=== PATIENT | male | born 1990 | race Caucasian/White ===

== ENCOUNTER 2017-11-08 17:23 | Emergency (ER) | payer MEDICAID ==
[~2017-11-08] VITALS: Ht 167.6 cm; Wt 81.6 kg
[2017-11-08 17:36] VITALS: BP 113/63
[2017-11-08] MEDS ORDERED: KETOROLAC 60 MG/2 ML VIAL IM ONE (18:10)
[2017-11-08] MEDS ORDERED: HYDROcodone/APAP 5/325 MG 1 TAB TAB PO ONE (18:10)
[2017-11-08 19:08] VITALS: BP 118/78
== END 2017-11-08 19:08 | disposition home or self-care (01) ==
LOC: MED 17:23
DX: S00.83XA Contusion of other part of head, initial encounter (principal); W21.03XA Struck by baseball, initial encounter; Y93.64 Activity, baseball; Y92.89 Other specified places as the place of occurrence of the external cause; Y99.8 Other external cause status
CPT/HCPCS: 70486; 96372; 99284; J1885

== ENCOUNTER 2018-02-25 16:30 | Emergency (ER) | payer SELFPAY ==
[~2018-02-25] VITALS: Ht 167.6 cm; Wt 77.1 kg
[2018-02-25 16:34] VITALS: BP 120/63
--- NOTE | 2018-02-25 16:42 | NUR ---
PT. CAME INTO THE ED DUE TO L FOOT PAIN X 2 DAYS. PT. STATES " ABOUT 2 DAYS AGO I TRIPPED AND FELL AND EVER SINCE THEN MY FOOT HAS BEEN HURTING". PT. HAS 8/10 THROBBING PAIN IN L FOOT THAT IS NON RADIATING. CAP REFILL LESS THAN 3 SEC ON L FOOT. SENSATION INTACT. PT IS ABLE TO BEAR WEIGHT. SWELLING NOTED TO FOOT NO BRUISING. RR EVEN AND UNLABORED. ER MD NOTIFIED. SAFETY PRECAUTIONS INITIATED. WILL CONTINUE TO MONITOR.
[2018-02-25] MEDS ORDERED: IBUPROFEN 600 MG TAB PO ONE (16:50)
--- NOTE | 2018-02-25 16:52 | NUR ---
XRAY AT BEDSIDE AT THIS TIME.
[2018-02-25 17:53] VITALS: BP 118/62
== END 2018-02-25 17:53 | disposition home or self-care (01) ==
LOC: MED 16:30
DX: S93.602A Unspecified sprain of left foot, initial encounter (principal); W18.39XA Other fall on same level, initial encounter; Y93.89 Activity, other specified; Y92.89 Other specified places as the place of occurrence of the external cause; Y99.8 Other external cause status
CPT/HCPCS: 73630; 99284; Q0092